=== PATIENT | male | born 1945 | race Caucasian/White ===

== ENCOUNTER 2025-04-26 14:50 | Emergency (ER) | payer MEDICAID ==
[~2025-04-26] VITALS: Ht 165.1 cm; Wt 65.0 kg
[2025-04-26 15:03] VITALS: O2SAT 98
[2025-04-26 16:35] VITALS: TEMP 97.4
[2025-04-26] MEDS: METOCLOPRAMIDE HCL 10MG/2ML VIAL IV ONE (16:35)
[2025-04-26] MEDS: ACETAMINOPHEN 325MG TABLET PO ONE (16:35)
[2025-04-26] MEDS: SODIUM CHLORIDE 0.9% 1,000 ML IV ONE (16:35)
[2025-04-26 17:25] LABS: HEMATOCRIT. 38.9 % (42.0-52.0); HEMOGLOBIN. 12.9 g/dL (14.0-18.0); MEAN PLATELET VOLUME 7.4 fl (7.4-10.4); PLATELET 273 x1000/uL (130-400); RED BLOOD CELL COUNT 4.22 mill/uL (4.7-6.1); RED CELL DISTRIBUTION WIDTH 15.8 % (11.6-14.6)
[2025-04-26 17:39] LABS: CREATININE 1.6 mg/dL (0.6-1.3)
[2025-04-26 17:40] LABS: UREA NITROGEN BLOOD 22 mg/dL (9-23)
[2025-04-26 17:41] LABS: ASPARTATE AMINOTRANSFERASE 155 IU/L (<34)
[2025-04-26 17:42] LABS: BILIRUBIN DIRECT 0.5 mg/dL (<=3.0); BILIRUBIN TOTAL 0.8 mg/dL (0.1-1.0); PROTEIN TOTAL 6.7 g/dL (6.0-8.3)
[2025-04-26 17:43] LABS: LYMPHOCYTES % MANUAL 7.0 % (20.0-50.0); MONOCYTES % MANUAL 3.0 % (2.0-8.0); NEUTROPHILS % MANUAL 90.0 % (45.0-75.0); PLATELET ESTIMATE NORMAL
[2025-04-26 19:38] VITALS: BP 148/72; PULSE 63; RESP 16
[2025-04-26] MEDS: MORPHINE SULFATE 4 MG/ML INJ (FOR IV/IM USE) IV ONE (19:38)
== END 2025-04-26 21:35 | disposition left against medical advice (07) ==
LOC: EDSEX 14:50 → ER 14:50 → CMPBEDREQ 04-27 08:52
DX: R51.9 Headache, unspecified (principal); R11.0 Nausea; E78.00 Pure hypercholesterolemia, unspecified; I10 Essential (primary) hypertension; I67.82 Cerebral ischemia
CPT/HCPCS: 99285; 96374; 70450; 96361; 96375; 80076; 80048; 85025; 36415; J2765; J2270; J7030

== ENCOUNTER 2025-05-23 10:47 | Emergency (ER) | payer MEDICAID ==
[~2025-05-23] VITALS: Ht 167.6 cm; Wt 75.0 kg
[2025-05-23 10:53] VITALS: O2SAT 98
[2025-05-23 11:41] LABS: BASOPHILS % 0.2 % (0.0-2.0); EOSINOPHILS % 0.4 % (0.0-5.0); HEMATOCRIT. 35.0 % (42.0-52.0); HEMOGLOBIN. 11.5 g/dL (14.0-18.0); LYMPHOCYTES % 8.2 % (20.0-50.0); MEAN PLATELET VOLUME 7.8 fl (7.4-10.4); MONOCYTES % 6.3 % (2.0-8.0); NEUTROPHILS % 84.9 % (40.0-76.0); PLATELET 316 x1000/uL (130-400); RED BLOOD CELL COUNT 3.80 mill/uL (4.7-6.1); RED CELL DISTRIBUTION WIDTH 15.6 % (11.6-14.6)
[2025-05-23] MEDS: SODIUM CHLORIDE 0.9% 1,000 ML IV ONE (11:43)
[2025-05-23] MEDS: METOCLOPRAMIDE HCL 10MG/2ML VIAL IV ONE (11:43)
[2025-05-23] MEDS: KETOROLAC 15MG/ML VIAL IV ONE (11:43)
[2025-05-23 11:59] LABS: CREATININE 1.6 mg/dL (0.6-1.3); UREA NITROGEN BLOOD 18.0 mg/dL (9-23)
[2025-05-23] MEDS ORDERED: TOPUD PO (13:13)
[2025-05-23] MEDS: IOHEXOL-350 100 ML BOTTLE ONE (14:04)
[2025-05-23 14:18] VITALS: BP 119/73; PULSE 75; RESP 18; TEMP 37.1; O2SAT 100
== END 2025-05-23 14:24 | disposition home or self-care (01) ==
LOC: ER 10:47 → CMPBEDREQ 21:08
DX: G44.209 Tension-type headache, unspecified, not intractable (principal); I10 Essential (primary) hypertension; E11.9 Type 2 diabetes mellitus without complications
CPT/HCPCS: 99285; 96374; 70496; 96375; 80048; 85025; 36415; 70450; J1885; Q9967; J2765; J7030